=== PATIENT | male | born 1950 | race Caucasian/White ===

== ENCOUNTER 2018-02-17 12:31 | Day surgery (SDC) | payer MEDICARE, BC ==
[~2018-02-17 12:31] MED LIST: Buffered Lidocaine 0.9% SYRIN* 5 ML/SYR SYRINGE INTRADERM ONE; Dexamethasone IV* 4 MG/ML 1 ML (4 MG) IV SLOW PU ONE; Dexamethasone IV* 4 MG/ML 1 ML (4 MG) ONE; Famotidine IV* 10 MG/ML 2 ML (20 mg) IV ONE; Famotidine IV* 10 MG/ML 2 ML (20 mg) ONE
[2018-02-17] MEDS ORDERED: PROCHLORPERAZINE INJ 5 MG/ML 2 ML VIAL IV PRN (13:29)
[2018-02-17] MEDS ORDERED: Naloxone* 0.4 MG/ML 1 ML VIAL IV PRN (13:29)
[2018-02-17] MEDS ORDERED: oxyCODONE/Acetamin 5/325 MG* TAB PO PRN (13:29)
[2018-02-17] MEDS ORDERED: HYDROcodone/ACETAMIN 5-325 MG* 1 TAB PO PRN (13:29)
[2018-02-17] MEDS ORDERED: fentaNYL* 50 MCG/ML 2 ML VIAL (100 MCG VIAL) IV PRN (13:29)
[2018-02-17] MEDS ORDERED: EPINEPHRINE 1 MG/ML 1 ML VIAL ONE (13:34)
[2018-02-17] MEDS ORDERED: Lidocaine 4% TOPICAL* 50 ML TOP.SOLN ONE (13:35)
[2018-02-17] MEDS ORDERED: Oxymetazoline 0.05% NASAL SPR* 15 ML BTL ONE (13:35)
[2018-02-17] MEDS ORDERED: Propofol* 10 MG/ML 20 ML BTL IV PUSH ONE (13:41)
[2018-02-17] MEDS ORDERED: Mivacurium Chloride* 20 MG/10 ML VIAL IV ONE (13:41)
[2018-02-17] MEDS ORDERED: Lidocaine 2% PF * 5 ML VIAL ONE (13:41)
[2018-02-17] MEDS ORDERED: fentaNYL* 50 MCG/ML 5 ML VIAL (250 MCG VIAL) ONE (13:41)
[2018-02-17] MEDS ORDERED: Methylene Blue 0.5 %* 50 MG/10 ML AMP IV ONE (13:42)
[2018-02-17 15:29] VITALS: BP 156/87
--- NOTE | 2018-02-18 03:55 | OP ---
DATE OF OPERATION: 02/17/18 - SDS DATE OF : 50 SURGEON: José Luis Elizalde MD. 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 OPERATIVE PROCEDURE: Microlaryngoscopy with biopsy and KTP laser ablation of the left vocal cord lesion under general endotracheal anesthesia using a laser safe tube. Laser for safe technique was used during the surgery. COMPLICATIONS: None. DISPOSITION: Good. SPECIMENS: Left vocal cord mass. DESCRIPTION OF PROCEDURE: The patient was taken to operating room, placed in the supine position on the operating table. General anesthesia was induced. He was orotracheally intubated with eye pads and white drapes, red drapes were placed around the patient's face during the surgery. Tooth guard was placed on the upper teeth. Laryngoscope inserted, suspended from the suspension system and the microscope brought in. He had a white raised polypoid mass on the left vocal cord, initially I took the biopsy forceps and scissors and trimmed some of this off to biopsy, it was the mid membranous vocal cord on the left. KTP laser at a setting of 4 was then used to ablate at the base, trying to preserve as much as the underlying cord and anterior and posterior cords that were not involved as possible. The patient tolerated this procedure well, no complications, transferred to the recovery room in stable condition. [id number] #: [id number] MTDD
== END 2018-02-17 15:45 | disposition home or self-care (01) ==
LOC: OR 12:31
PROVIDERS: ATTEND Otolaryngology
DX: D14.1 Benign neoplasm of larynx (principal); E11.9 Type 2 diabetes mellitus without complications; Z79.84 Long term (current) use of oral hypoglycemic drugs; E78.5 Hyperlipidemia, unspecified; K21.9 Gastro-esophageal reflux disease without esophagitis; I10 Essential (primary) hypertension
CPT/HCPCS: 88305; A9270-GY; J1100; J2704; J3010